=== PATIENT | female | born 1935 | race Caucasian/White ===

== ENCOUNTER 2025-02-02 15:27 | Observation (INO) | payer MEDICARE, SELFPAY ==
[2025-02-02] VITALS (24 sets, daily range): BP systolic 123–148; BP diastolic 44–97; PULSE 86–99; RESP 16–30; TEMP 36.9; O2SAT 83–100
--- NOTE | 2025-02-02 15:38 | ECG_ITS ---
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
--- NOTE | 2025-02-02 16:20 | XRR_ITS ---
PROCEDURE INFORMATION: Exam: XR Chest Exam date and time: 02/02/2025 4:52 PM Age: 89 years old Clinical indication: Shortness of breath; Additional info: SOB; Rash to back-probable shingles; Anxiety; Hyperventilation TECHNIQUE: Imaging protocol: Radiologic exam of the chest. Views: 1 view. COMPARISON: No relevant prior studies available. 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 No consolidation. Pleural spaces: Unremarkable. No pleural effusion. No pneumothorax. Heart/Mediastinum: Unremarkable. No cardiomegaly. Bones/joints: Bilateral rotator cuff arthropathy. Mild degenerative changes in the spine with lumbar scoliosis. No acute fracture. XR/XR chest 1V portable [id number] IMPRESSION: No acute findings.
[2025-02-02 17:27] LABS: Glucose Urine UA Negative (Normal); Nitrate Urine Negative (Negative); Specific Gravity, Urine 1.020 (1.005-1.030)
[2025-02-02 17:30] LABS: Hematocrit 35.8 % (36-47); Hemoglobin 11.70 g/dL (11.27-16.99); Mean Corpuscular HGB Conc 32.7 g/dL (30-55); Mean Corpuscular Hemoglobin 32.4 pg (27-33); Mean Corpuscular Volume 99.2 fl (85-98); Nucleated Red Blood Cells % 0 %; Platelet Count 340 10^3/cmm (157-399); Red Blood Count 3.61 10^6/uL (3.85-5.65); White Blood Count 9.73 10^3/uL (3.29-11.43)
[2025-02-02 17:32] LABS: Add Urine Microscopic? YES
[2025-02-02] MEDS: oxyCODONE-APAP 5-325 mg Tablet 0.5 TAB PO (17:34)
[2025-02-02 17:50] LABS: Alanine Aminotransferase 11 U/L (0-33); Albumin Level 4.1 g/dL (3.5-5.2); Alkaline Phosphatase 84 U/L (35-105); Anion Gap 18.1 (5-19); Aspartate Amino Transferase 15 U/L (0-32); Blood Urea Nitrogen 16 mg/dL (8-23); Calcium 9.5 mg/dL (8.5-10.5); Carbon Dioxide 19 mmol/L (22-29); Chloride 103 mmol/L (98-107); Globulin 2.8 g/dL (1.3-4.6); Glucose 93 mg/dL (65-115); Osmolality Calculated 283 mOsm/kg (285-295); Potassium 4.1 mmol/L (3.5-5.1); Sodium 136 mmol/L (136-145); Total Protein 6.9 g/dL (6.6-8.7)
--- NOTE | 2025-02-02 18:18 | ED_ITS ---
Documented by User: HENRI Webber 02/02/25 18:28 HPI - General Adult 2 General: Chief complaint: General Medical Stated complaint: back pain, rash on back, sob Time Seen by Provider: 02/02/25 16:55 Source: patient and family Mode of arrival: ambulatory Limitations: no limitations History of Present Illness: Patient is an 89-year-old female who presents the emergency department complaining of rash and left-sided flank pain for the last few days. States that she recently was treated for UTI due to left lower back pain, however this pain has persisted and she noticed the breakout of dermatomal rash that she states feels like something sawing through my back. She also is reporting shortness of breath, chronically is on 2 L of oxygen and noted at this time to be hyperventilating and placed on 4 L in triage. She is not vaccinated for shingles. States she has been taking Tylenol at home with no relief. No fever, nausea/vomiting, or other symptoms reported at this time. MD complaint: Rash, shortness of breath, flank pain Onset (ago): day(s) Associated symptoms: Reports dyspnea and rash; Deny chest pain, headache(s), nausea, palpitations or vomiting Related Data Allergies Allergy/AdvReac Type Severity Reaction Status Date / Time No Known Allergies Allergy Verified 02/02/25 15:43 Review of Systems 2 General: Reports: 10 or more systems reviewed and unremarkable except in HPI and below Const: Denies: fever(s), chills or fatigue Eyes: Denies: change in vision ENMT: Denies: throat pain, ear or mastoid pain or nasal discharge Card: Denies: chest pain, palpitations, swelling of feet/ankles or lightheadedness Resp: Reports: dyspnea; Denies: productive cough or wheezing GI: Denies: abdominal pain, nausea, vomiting, diarrhea or constipation : Reports: flank pain; Denies: difficulty voiding, dysuria or urinary frequency Musc: Reports: back pain; Denies: neck pain or joint pain Skin/Breast: Reports: rash, skin pain and skin tenderness Neuro: Denies: headache(s), numbness in extremities or weakness in extremities Physical Exam 2 Const: COMMON NORMALS: patient oriented x3 and alert O RIENTATION/CONSCIOUSNESS: Yes awake HENMT: COMMON NORMALS: normocephalic and atraumatic HEAD & SCALP: n ormocephalic and atraumatic Neck/C-Spine: COMMON NORMALS: full ROM, no lymphadenopathy, supple and no meningeal signs Resp: COMMON NORMALS: clear to auscultation bilaterally EFFORT & INSPECTION: Yes tachypneic AUSCULTATION: clear to auscultation bilaterally OTHER: Shallow breathing, speaking in choppy sentences, hyperventilating Cardio: COMMON NORMALS: regular rate and regular rhythm RATE: regular rate RHYTHM: regular rhythm Back/Pelvis: OTHER: Scabbed over vesicular rash that begins to left mid thoracic region and wraps around the left flank. Severe tenderness to palpation of the area Extremity: COMMON NORMALS: full ROM and capillary refill normal Neuro: COMMON NORMALS: patient oriented x3, moves all extremities, no focal motor deficits and no sensory deficits noted SENSORIUM/ORIENTATION: Yes alert MENINGEAL SIGNS: Yes no meningeal signs Skin: COMMON NORMALS: turgor normal NARRATIVE SKIN EXAM: Previously mentioned rash to the back wraps around towards the left flank and left lower abdominal region GENERAL SKIN EXAM: turgor normal Course 2 Vital Signs: Vital signs: Vital Signs Temperature 98.4 F 02/02/25 15:39 Pulse Rate 91 02/02/25 18:03 Respiratory Rate 16 02/02/25 18:03 Blood Pressure 141/83 02/02/25 18:03 Pulse Oximetry 99 02/02/25 18:03 Oxygen Delivery Me thod Nasal Cannula 02/02/25 18:03 Oxygen Flow Rate 4 02/02/25 15:39 [facility] - General Adult Medical Decision Making Patient presenting with what appears to be shingles rash, severe 10/10 pain reported. Pain began a week ago where she was treated for UTI, later the rash appeared following the pain and she states she has not gotten any relief despite erkg-ely-imooyce therapy. Chronically on 2 L of oxygen, she is put on 4 L due to her hyperventilation and dropping O2 sats, but has been 99 to 100% on 4 L. She lives at home by herself, and states to me that she does not feel comfortable treating at home, despite efforts to control her pain here in the emergency department. She was given 2.5 mg oxycodone, lidocaine patch, and 5 mg Tylenol which have not touched her pain. Spoke to Dr. Lambert, hospitalist, who will see the patient. Lab Data 02/02/25 17:20 02/02/25 17:20 Radiology Impressions Chest X-Ray 02/02/25 16:20 IMPRESSION: No acute findings. Laboratory Results WBC 9.73 10^3/uL (3.29-11.43) 02/02/25 17:20 RBC 3.61 10^6/uL (3.85-5.65) L 02/02/25 17:20 Hgb 11.70 g/dL (11.27-16.99) 02/02/25 17:20 Hct 35.8 % (36-47) L 02/02/25 17:20 MCV 99.2 fl (85-98) H 02/02/25 17:20 MCH 32.4 pg (27-33) 02/02/25 17:20 MCHC 32.7 g/dL (30-55) 02/02/25 17:20 RDW 13.3 % (12.1-15.1) 02/02/25 17:20 Plt Count 340 10^3/cmm (157-399) 02/02/25 17:20 MPV 8.6 fL (7.4-10.4) 02/02/25 17:20 Neut % (Auto) 59.8 % 02/02/25 17:20 Lymph % (Auto) 28.6 % 02/02/25 17:20 [place] % (Auto) 8.6 % 02/02/25 17:20 Eos % (Auto) 0.8 % 02/02/25 17:20 Baso % (Auto) 0.5 % 02/02/25 17:20 Neut # (Auto) 5.81 10^3/uL (1.8-7.7) 02/02/25 17:20 Lymph # (Auto) 2.8 10^3/uL (0.8-4.8) 02/02/25 17:20 [place] # (Auto) 0.8 10^3/uL (0.2-0.9) 02/02/25 17:20 Eos # (Auto) 0.1 10^3/uL (0.0-0.8) 02/02/25 17:20 Baso # (Auto) 0.1 10^3/uL (0.0-0.1) 02/02/25 17:20 Nucleated RBC % (auto) 0 % 02/02/25 17:20 Nucleated RBCs # 0.0 /100WBC 02/02/25 17:20 Sodium 136 mmol/L (136-145) 02/02/25 17:20 Potassium 4.1 mmol/L (3.5-5.1) 02/02/25 17:20 Chloride 103 mmol/L (98-107) 02/02/25 17:20 Carbon Dioxide 19 mmol/L (22-29) L 02/02/25 17:20 Anion Gap 18.1 (5-19) 02/02/25 17:20 BUN 16 mg/dL (8-23) 02/02/25 17:20 Creatinine 1.4 mg/dL (0.5-0.9) H 02/02/25 17:20 GFR Calculation Not Reportable 02/02/25 17:20 Glucose 93 mg/dL (65-115) 02/02/25 17:20 Calculated Osmolality 283 mOsm/kg (285-295) L 02/02/25 17:20 Calcium 9.5 mg/dL (8.5-10.5) 02/02/25 17:20 Total Bilirubin 0.2 mg/dL (0.15-1.2) 02/02/25 17:20 AST 15 U/L (0-32) 02/02/25 17:20 ALT 11 U/L (0-33) 02/02/25 17:20 Alkaline Phosphatase 84 U/L (35-105) 02/02/25 17:20 Total Protein 6.9 g/dL (6.6-8.7) 02/02/25 17:20 Albumin 4.1 g/dL (3.5-5.2) 02/02/25 17:20 Globulin 2.8 g/dL (1.3-4.6) 02/02/25 17:20 Urine Color Yellow (Yellow) 02/02/25 17:11 Urine Appearance Clear (CLEAR) 02/02/25 17:11 Urine pH 5.0 (5-7) 02/02/25 17:11 Ur Specific [place] 1.020 (1.005-1.030) 02/02/25 17:11 Urine Protein Negative (Negative) 02/02/25 17:11 Urine Glucose (UA) Negative (Normal) 02/02/25 17:11 Urine Ketones Trace (Negative) 02/02/25 17:11 Urine Blood Negative (Negative) 02/02/25 17:11 Urine Nitrate Negative (Negative) 02/02/25 17:11 Urine Bilirubin Negative (Negative) 02/02/25 17:11 Urine Urobilinogen 1.0 mg/dL (Negative) 02/02/25 17:11 Ur Leukocyte Esterase 2+ (Negative) A 02/02/25 17:11 Urine RBC 0-2 /hpf (0-2) 02/02/25 17:11 Urine WBC 11-20 /hpf (0-5) H 02/02/25 17:11 Ur Squamous Epith Cells 0-5 /hpf (0-5) 02/02/25 17:11 Amorphous Sediment Not Reportable 02/02/25 17:11 Urine Bacteria None seen /hpf (NONE) 02/02/25 17:11 Hyaline Casts 6.20 /lpf 02/02/25 17:11 XR interpretation done by ED provider, pending radiology final review ED provider radiology interpretation(s): Chest x-ray unremarkable for any focal consolidation. Discharge Plan Discharge Patient Disposition: Placed in Observation Admit Provider: Satish Lambert Clinical Impression: Intractable pain Shingles Qualifiers: Herpes zoster complications: without complications Qualified Code(s): B02.9 - Zoster without complications Coding Level of Care Code ED Plate Grainer for Chg Fwd Documented by User: Tesfaye Amaya DO 02/02/25 18:44 HPI - General Adult 2 General: Chief complaint: General Medical Stated complaint: back pain, rash on back, sob Time Seen by Provider: 02/02/25 16:55 Related Data Allergies Allergy/AdvReac Type Severity Reaction Status Date / Time No Known Allergies Allergy Verified 02/02/25 15:43 Course 2 Vital Signs: Vital signs: Vital Signs Temperature 98.4 F 02/02/25 15:39 Pulse Rate 91 02/02/25 18:03 Respiratory Rate 16 02/02/25 18:03 Blood Pressure 141/83 02/02/25 18:03 Pulse Oximetry 99 02/02/25 18:03 Oxygen Delivery Me thod Nasal Cannula 02/02/25 18:03 Oxygen Flow Rate 4 02/02/25 15:39 MDM - General Adult Medical Decision Making Patient presenting with what appears to be shingles rash, severe 10/10 pain reported. Pain began a week ago where she was treated for UTI, later the rash appeared following the pain and she states she has not gotten any relief despite lqqk-syv-rqogcnu therapy. Chronically on 2 L of oxygen, she is put on 4 L due to her hyperventilation and dropping O2 sats, but has been 99 to 100% on 4 L. She lives at home by herself, and states to me that she does not feel comfortable treating at home, despite efforts to control her pain here in the emergency department. She was given 2.5 mg oxycodone, lidocaine patch, and 5 mg Tylenol which have not touched her pain. Spoke to Dr. Lambert, hospitalist, who will see the patient. The patient was seen by Mr. Fausto PA-C. I agree with his history, evaluation, and management. The hospitalist has seen the patient. Lab Data 02/02/25 17:20 02/02/25 17:20 Radiology Impressions Chest X-Ray 02/02/25 16:20 IMPRESSION: No acute findings. Laboratory Results WBC 9.73 10^3/uL (3.29-11.43) 02/02/25 17:20 RBC 3.61 10^6/uL (3.85-5.65) L 02/02/25 17:20 Hgb 11.70 g/dL (11.27-16.99) 02/02/25 17:20 Hct 35.8 % (36-47) L 02/02/25 17:20 MCV 99.2 fl (85-98) H 02/02/25 17:20 MCH 32.4 pg (27-33) 02/02/25 17:20 MCHC 32.7 g/dL (30-55) 02/02/25 17:20 RDW 13.3 % (12.1-15.1) 02/02/25 17:20 Plt Count 340 10^3/cmm (157-399) 02/02/25 17:20 MPV 8.6 fL (7.4-10.4) 02/02/25 17:20 Neut % (Auto) 59.8 % 02/02/25 17:20 Lymph % (Auto) 28.6 % 02/02/25 17:20 [place] % (Auto) 8.6 % 02/02/25 17:20 Eos % (Auto) 0.8 % 02/02/25 17:20 Baso % (Auto) 0.5 % 02/02/25 17:20 Neut # (Auto) 5.81 10^3/uL (1.8-7.7) 02/02/25 17:20 Lymph # (Auto) 2.8 10^3/uL (0.8-4.8) 02/02/25 17:20 [place] # (Auto) 0.8 10^3/uL (0.2-0.9) 02/02/25 17:20 Eos # (Auto) 0.1 10^3/uL (0.0-0.8) 02/02/25 17:20 Baso # (Auto) 0.1 10^3/uL (0.0-0.1) 02/02/25 17:20 Nucleated RBC % (auto) 0 % 02/02/25 17:20 Nucleated RBCs # 0.0 /100WBC 02/02/25 17:20 Sodium 136 mmol/L (136-145) 02/02/25 17:20 Potassium 4.1 mmol/L (3.5-5.1) 02/02/25 17:20 Chloride 103 mmol/L (98-107) 02/02/25 17:20 Carbon Dioxide 19 mmol/L (22-29) L 02/02/25 17:20 Anion Gap 18.1 (5-19) 02/02/25 17:20 BUN 16 mg/dL (8-23) 02/02/25 17:20 Creatinine 1.4 mg/dL (0.5-0.9) H 02/02/25 17:20 GFR Calculation Not Reportable 02/02/25 17:20 Glucose 93 mg/dL (65-115) 02/02/25 17:20 Calculated Osmolality 283 mOsm/kg (285-295) L 02/02/25 17:20 Calcium 9.5 mg/dL (8.5-10.5) 02/02/25 17:20 Total Bilirubin 0.2 mg/dL (0.15-1.2) 02/02/25 17:20 AST 15 U/L (0-32) 02/02/25 17:20 ALT 11 U/L (0-33) 02/02/25 17:20 Alkaline Phosphatase 84 U/L (35-105) 02/02/25 17:20 Total Protein 6.9 g/dL (6.6-8.7) 02/02/25 17:20 Albumin 4.1 g/dL (3.5-5.2) 02/02/25 17:20 Globulin 2.8 g/dL (1.3-4.6) 02/02/25 17:20 Urine Color Yellow (Yellow) 02/02/25 17:11 Urine Appearance Clear (CLEAR) 02/02/25 17:11 Urine pH 5.0 (5-7) 02/02/25 17:11 Ur Specific [place] 1.020 (1.005-1.030) 02/02/25 17:11 Urine Protein Negative (Negative) 02/02/25 17:11 Urine Glucose (UA) Negative (Normal) 02/02/25 17:11 Urine Ketones Trace (Negative) 02/02/25 17:11 Urine Blood Negative (Negative) 02/02/25 17:11 Urine Nitrate Negative (Negative) 02/02/25 17:11 Urine Bilirubin Negative (Negative) 02/02/25 17:11 Urine Urobilinogen 1.0 mg/dL (Negative) 02/02/25 17:11 Ur Leukocyte Esterase 2+ (Negative) A 02/02/25 17:11 Urine RBC 0-2 /hpf (0-2) 02/02/25 17:11 Urine WBC 11-20 /hpf (0-5) H 02/02/25 17:11 Ur Squamous Epith Cells 0-5 /hpf (0-5) 02/02/25 17:11 Amorphous Sediment Not Reportable 02/02/25 17:11 Urine Bacteria None seen /hpf (NONE) 02/02/25 17:11 Hyaline Casts 6.20 /lpf 02/02/25 17:11 Discharge Plan Discharge Patient Disposition: Placed in Observation Admit Provider: Satish Lambert Clinical Impression: Intractable pain Shingles Qualifiers: Herpes zoster complications: without complications Qualified Code(s): B02.9 - Zoster without complications Coding Level of Care Code ED Plate Grainer for Mohan Dejesus
--- NOTE | 2025-02-02 18:26 | PM.HP ---
Providers/Chief Complaint Chief Complaint: back pain, rash on back, sob History of Present Illness As per the previous notes and the patient/family: Anjelica Rooney is a 89 year old female with past medical history of lung fibrosis on regular nebulizations with albuterol 3-4 times per day, hypertension on antihypertensive medications, who presents the emergency department complaining of rash and left-sided flank pain for the last few days. She was having UTI and was treated for that with Keflex which she took for 7 days. later the patient developed a rash on her left side of the flank near the breast fold in a dermatomal fashion. It was associated with extreme pain with burning and tingling sensation that was causing discomfort to the patient. She took Tylenol and other measures but it did not relieve her symptoms. The rash started with vesicular eruptions currently its crusted. She did not take any antiviral medications for the treatment. She is not known to be vaccinated. There was no associated rash symptoms or any part of the body no photophobia no nausea vomiting diarrhea abdominal pain no leg swelling chest pain or any other symptoms. The patient is at baseline home oxygen dependent due to lung fibrosis 3 to 4 L and always in the range of mild tachypnea around 18-24 as per the daughter at baseline. However she was on some medication for lung fibrosis but currently she does not remember and is not taking it at the moment. The patient medications were reviewed that she brought. Review of Systems General: Reports: 10 or more systems reviewed and unremarkable except in HPI and below Medications/Allergies Allergies Allergy/AdvReac Type Severity Reaction Status Date / Time No Known Allergies Allergy Verified 02/02/25 15:43 Vitals/I&O/Wt Last Vital Signs Temp 98.4 F 02/02/25 15:39 Pulse 91 02/02/25 18:03 Resp 16 02/02/25 18:03 BP 141/83 02/02/25 18:03 Pulse Ox 99 02/02/25 18:03 O2 Del Method Nasal Cannula 02/02/25 18:03 O2 Flow Rate 4 02/02/25 15:39 Weight last 48 hrs Weight 66.678 kg Physical Exam Narrative: General: Alert oriented x3, patient seen lying with discomfort due to pain on the rash on her left side of the flank in a dermatomal fashion. HEENT: Normocephalic, atraumatic, EOMI, breathing 4 L through nasal cannula at her baseline with mild tachypnea Cardio: Regular rate rhythm, normal S1-S2, no murmurs rubs gallops, JVD normal Respiratory: Mild inspiratory crepitations were heard but were not prominent. No wheezes or any stridor GI: Abdomen soft, nontender, nondistended, normoactive bowel sounds present all 4 quadrants, Neuro: Cranial nerves II to XII intact, strength 5/5, sensation 5/5, no gross neurological deficit Behavior: Appropriate and cooperative Extremities: Pulses 2+, no edema, no cyanosis Skin: Visible rash on the left flank near the breast fold in a dermatomal fashion, crusted no vesicular lesions found, partially healing, redness and erythema around Data 02/02/25 17:20 02/02/25 17:20 A&P Assessment and plan 1. Intractable pain: 2. Shingles: 3. Post herpetic neuralgia: 4. Lung fibrosis: 5. Hypertension: Plan: 89-year-old lady with past medical history of lung fibrosis, hypertension and recent UTI was treated 7 days ago with Keflex presented with skin rash on the left flank near the breast fold suggestive of shingles with crusted lesions since a week now presented with postherpetic neuralgia - Start the patient on gabapentin 300 mg twice daily for postherpetic neuralgia - Continue valacyclovir 1 g 3 times daily for shingles for at least 7 days - Lidocaine topicals for the burning sensation -Isolation protocol with contact precautions and covering the rash adequately to avoid exposure to the ear, if unable to cover then airborne isolation to apply. - Continue home medications amlodipine 2.5 mg daily and lisinopril 5 mg daily (at home patient taking combination of lisinopril and hydrochlorothiazide) - Albuterol and ipratropium Q4 hourly scheduled -Hydrocortisone as needed for pain - PPI daily - Home medication buspirone 50 mg 3 times daily to continue. VTE prophylaxis: Heparin twice daily PDMP PDMP Reviewed: Not Reviewed Attestations Medical Necessity Statement*: Anjelica Rooney's hospital stay will require greater than 2 midnights for her management of shingles, post herpetic neuralgia Time Spent in Patient Care: 16 - 35 minutes (>than 50% of time spent in counselling and/or direct pt care on unit). Other Attestations: Patient condition has been discussed at length with the patient/family, I have independently reviewed the chart labs imaging and diagnostics and EKG. I have discussed the goals of care and code status with the patient/family/NOK/legal warehouse representative, and documented accordingly. The patient/family has been informed about the current condition and further plan of care. Agreed with the plan of care and understood without any language barrier. This documentation was created by [employer] rehabilitation program manager software. Every effort was made to ensure accuracy of rehabilitation program manager. Any obvious errors or omissions should be clarified with the author of the document. Coding Level of Care Code 55333 Diagnoses Intractable pain R52 Shingles B02.9 Post herpetic neuralgia B02.29 Lung fibrosis J84.10 Hypertension I10
[2025-02-02] MEDS: heparin 5,000 unit/mL INJ 1 mL 5000 UNIT SUBCUT (20:32)
[2025-02-03] VITALS (19 sets, daily range): BP systolic 110–156; BP diastolic 53–90; PULSE 76–106; RESP 16–28; TEMP 36.3–36.4; O2SAT 94–100
[2025-02-03] MEDS: lidocaine 2% Urojet 20 mL (04:47)
[2025-02-03 06:05] LABS: Hematocrit 35.2 % (36-47); Hemoglobin 11.40 g/dL (11.27-16.99); Mean Corpuscular HGB Conc 32.4 g/dL (30-55); Mean Corpuscular Hemoglobin 32.2 pg (27-33); Mean Corpuscular Volume 99.4 fl (85-98); Nucleated Red Blood Cells % 0 %; Platelet Count 294 10^3/cmm (157-399); Red Blood Count 3.54 10^6/uL (3.85-5.65); White Blood Count 8.33 10^3/uL (3.29-11.43)
[2025-02-03 06:15] LABS: Alanine Aminotransferase 10 U/L (0-33); Albumin Level 3.8 g/dL (3.5-5.2); Alkaline Phosphatase 82 U/L (35-105); Anion Gap 16.4 (5-19); Aspartate Amino Transferase 17 U/L (0-32); Blood Urea Nitrogen 15 mg/dL (8-23); Calcium 9.5 mg/dL (8.5-10.5); Carbon Dioxide 22 mmol/L (22-29); Chloride 103 mmol/L (98-107); Creatinine Clr Calc Pharmacy 34.8267; Globulin 2.8 g/dL (1.3-4.6); Glucose 109 mg/dL (65-115); Osmolality Calculated 285 mOsm/kg (285-295); Potassium 4.4 mmol/L (3.5-5.1); Sodium 137 mmol/L (136-145); Total Protein 6.6 g/dL (6.6-8.7)
[2025-02-03] MEDS: heparin 5,000 unit/mL INJ 1 mL 5000 UNIT SUBCUT (06:24)
[2025-02-03] MEDS: pantoprazole 40 mg SDV IVP (08:15)
--- NOTE | 2025-02-03 13:03 | PM.DCS ---
Discharge Providers Date of Admission: 02/02/25 18:23 Date of Discharge: February 03, 2025 Attending Provider at Admission: Satish aLmbert MD Attending Provider at Discharge: Satish Lambert MD Diagnoses at Discharge Discharge Diagnosis 1. Intractable pain: 2. Shingles: 3. Post herpetic neuralgia: 4. Lung fibrosis: 5. Hypertension: Reason for Visit Reason for Visit: back pain, rash on back, sob Brief History: As per the previous notes and the patient/family: Anjelica Rooney is a 89 year old female with past medical history of lung fibrosis on regular nebulizations with albuterol 3-4 times per day, hypertension on antihypertensive medications, who presents the emergency department complaining of rash and left-sided flank pain for the last few days. She was having UTI and was treated for that with Keflex which she took for 7 days. later the patient developed a rash on her left side of the flank near the breast fold in a dermatomal fashion. It was associated with extreme pain with burning and tingling sensation that was causing discomfort to the patient. She took Tylenol and other measures but it did not relieve her symptoms. The rash started with vesicular eruptions currently its crusted. She did not take any antiviral medications for the treatment. She is not known to be vaccinated. There was no associated rash symptoms or any part of the body no photophobia no nausea vomiting diarrhea abdominal pain no leg swelling chest pain or any other symptoms.The patient is at baseline home oxygen dependent due to lung fibrosis 3 to 4 L and always in the range of mild tachypnea around 18-24 as per the daughter at baseline. However she was on some medication for lung fibrosis but currently she does not remember and is not taking it at the moment. Hospital Course Hospital Course The patient was started on gabapentin 200 mg twice daily, valacyclovir for shingles. She was kept on her nebulization for lung fibrosis. And lidocaine topical to apply on the rash site. The patient was stable and seen in the morning sleeping and lying comfortably. The pain has improved significantly unremarkably. And the patient discharged home without any complications with her baseline status. Patient condition has been discussed at length with the patient/family, I have independently reviewed the chart labs imaging and diagnostics and EKG. I have discussed the goals of care and code status with the patient/family/NOK/legal leasing representative, and documented accordingly. The patient/family has been informed about the current condition and further plan of care. Agreed with the plan of care and understood without any language barrier. This documentation was created by [employer] supply chain development manager software. Every effort was made to ensure accuracy of supply chain development manager. Any obvious errors or omissions should be clarified with the author of the document. Physical Exam Narrative: General: Alert oriented x3, patient seen lying with discomfort due to pain on the rash on her left side of the flank in a dermatomal fashion. HEENT: Normocephalic, atraumatic, EOMI, breathing 2 L through nasal cannula at her baseline with mild tachypnea Cardio: Regular rate rhythm, normal S1-S2, no murmurs rubs gallops, JVD normal Respiratory: Mild inspiratory crepitations were heard at the bases up to mid zone that were fine in nature. No wheezes or any stridor GI: Abdomen soft, nontender, nondistended, normoactive bowel sounds present all 4 quadrants, Neuro: Cranial nerves II to XII intact, strength 5/5, sensation 5/5, no gross neurological deficit Behavior: Appropriate and cooperative Extremities: Pulses 2+, no edema, no cyanosis Skin: Visible rash on the left flank near the breast fold in a dermatomal fashion, crusted no vesicular lesions found, partially healing, redness and erythema around Discharge Data Studies Completed and Pending Completed Studies During Hospitalization Category Date Time Status XR chest 1V portable [id number] Stat Exams 02/02/25 16:20 Completed Radiology Impressions Chest X-Ray 02/02/25 16:20 IMPRESSION: No acute findings. Laboratory Results WBC 8.33 10^3/uL (3.29-11.43) 02/03/25 05:52 RBC 3.54 10^6/uL (3.85-5.65) L 02/03/25 05:52 Hgb 11.40 g/dL (11.27-16.99) 02/03/25 05:52 Hct 35.2 % (36-47) L 02/03/25 05:52 MCV 99.4 fl (85-98) H 02/03/25 05:52 MCH 32.2 pg (27-33) 02/03/25 05:52 MCHC 32.4 g/dL (30-55) 02/03/25 05:52 RDW 13.2 % (12.1-15.1) 02/03/25 05:52 Plt Count 294 10^3/cmm (157-399) 02/03/25 05:52 MPV 8.6 fL (7.4-10.4) 02/03/25 05:52 Neut % (Auto) 58.9 % 02/03/25 05:52 Lymph % (Auto) 28.9 % 02/03/25 05:52 [place] % (Auto) 8.6 % 02/03/25 05:52 Eos % (Auto) 1.1 % 02/03/25 05:52 Baso % (Auto) 0.6 % 02/03/25 05:52 Neut # (Auto) 4.90 10^3/uL (1.8-7.7) 02/03/25 05:52 Lymph # (Auto) 2.4 10^3/uL (0.8-4.8) 02/03/25 05:52 [place] # (Auto) 0.7 10^3/uL (0.2-0.9) 02/03/25 05:52 Eos # (Auto) 0.1 10^3/uL (0.0-0.8) 02/03/25 05:52 Baso # (Auto) 0.1 10^3/uL (0.0-0.1) 02/03/25 05:52 Nucleated RBC % (auto) 0 % 02/03/25 05:52 Nucleated RBCs # 0.0 /100WBC 02/03/25 05:52 Sodium 137 mmol/L (136-145) 02/03/25 05:52 Potassium 4.4 mmol/L (3.5-5.1) 02/03/25 05:52 Chloride 103 mmol/L (98-107) 02/03/25 05:52 Carbon Dioxide 22 mmol/L (22-29) 02/03/25 05:52 Anion Gap 16.4 (5-19) 02/03/25 05:52 BUN 15 mg/dL (8-23) 02/03/25 05:52 Creatinine 1.0 mg/dL (0.5-0.9) H 02/03/25 05:52 GFR Calculation Not Reportable 02/03/25 05:52 Glucose 109 mg/dL (65-115) 02/03/25 05:52 Calculated Osmolality 285 mOsm/kg (285-295) 02/03/25 05:52 Calcium 9.5 mg/dL (8.5-10.5) 02/03/25 05:52 Total Bilirubin 0.4 mg/dL (0.15-1.2) 02/03/25 05:52 AST 17 U/L (0-32) 02/03/25 05:52 ALT 10 U/L (0-33) 02/03/25 05:52 Alkaline Phosphatase 82 U/L (35-105) 02/03/25 05:52 Total Protein 6.6 g/dL (6.6-8.7) 02/03/25 05:52 Albumin 3.8 g/dL (3.5-5.2) 02/03/25 05:52 Globulin 2.8 g/dL (1.3-4.6) 02/03/25 05:52 Urine Color Yellow (Yellow) 02/02/25 17:11 Urine Appearance Clear (CLEAR) 02/02/25 17:11 Urine pH 5.0 (5-7) 02/02/25 17:11 Ur Specific [place] 1.020 (1.005-1.030) 02/02/25 17:11 Urine Protein Negative (Negative) 02/02/25 17:11 Urine Glucose (UA) Negative (Normal) 02/02/25 17:11 Urine Ketones Trace (Negative) 02/02/25 17:11 Urine Blood Negative (Negative) 02/02/25 17:11 Urine Nitrate Negative (Negative) 02/02/25 17:11 Urine Bilirubin Negative (Negative) 02/02/25 17:11 Urine Urobilinogen 1.0 mg/dL (Negative) 02/02/25 17:11 Ur Leukocyte Esterase 2+ (Negative) A 02/02/25 17:11 Urine RBC 0-2 /hpf (0-2) 02/02/25 17:11 Urine WBC 11-20 /hpf (0-5) H 02/02/25 17:11 Ur Squamous Epith Cells 0-5 /hpf (0-5) 02/02/25 17:11 Amorphous Sediment Not Reportable 02/02/25 17:11 Urine Bacteria None seen /hpf (NONE) 02/02/25 17:11 Hyaline Casts 6.20 /lpf 02/02/25 17:11 Vitals Last Vital Signs Temp 97.6 F 02/03/25 11:48 Pulse 93 02/03/25 11:48 Resp 20 H 02/03/25 11:48 BP 125/58 02/03/25 11:48 Pulse Ox 97 02/03/25 11:48 O2 Del Method Nasal Cannula 02/03/25 11:48 O2 Flow Rate 2 02/03/25 11:28 Discharge Plan Discharge Patient Disposition: Home Condition: Stable Prescriptions: New lidocaine HCl [Glydo] 2 % Jelly In Applicator 1 applic topical ONCE 10 Days Qty: 100 0RF valacyclovir 1 gram Tablet 1,000 mg PO BID 6 Days Qty: 12 0RF gabapentin 100 mg Capsule 200 mg PO BID 10 Days Qty: 40 0RF Continued atorvastatin 20 mg tablet 20 mg PO DAILY albuterol sulfate 2.5 mg /3 mL (0.083 %) solution for nebulization 2.5 mg inhalation Q6H amlodipine 2.5 mg tablet 2.5 mg PO DAILY potassium chloride 20 mEq tablet,ER particles/crystals 20 meq PO Q48H pantoprazole 40 mg tablet,delayed release (DR/EC) 40 mg PO DAILY buspirone 15 mg tablet 15 mg PO TID losartan-hydrochlorothiazide 100-12.5 mg tablet 1 tab PO DAILY acetaminophen [Tylenol Extra Strength] 500 mg Tablet 1,000 mg PO Q6H PRN (Reason: Fever Or Pain) ascorbic acid (vitamin C) [Vitamin C] 500 mg Tablet 500 mg PO DAILY ferrous sulfate [Iron (ferrous sulfate)] 325 mg (65 mg iron) Tablet 325 mg PO DAILY Discharge Order = DC NOW: Discharge Order (Routine); Ordered 02/03/25 Ordered By: Satish Lambert Discharge Diet: Advance as tolerated and Usual diet Discharge Activity: Resume usual activity, Increase activity as tolerated and Limit activity as instructed Patient Instructions: Opioid Safety, Patient Portal & Deondre Instructions Discharge Attestations Time Spent in Discharge Care*: less than 30 min Specific Discharge Activities: educating patient, educating and/or supporting family/caregiver, discussing with pcp/other providers, discussing with egg caser/social workers/dc planners, documenting/other paperwork and evaluating patient/reviewing data Status at Discharge: Cognitive status at discharge: cognitively intact, Behavioral status at discharge: cooperative, Functional status at discharge: other assisted ambulation, Overall status at discharge: patient is back to baseline Quality Metrics Clinical Quality Measures [ No reported AMI, CVA or VTE this stay] Coding Level of Care Code Acute Code for Chg Fwd Diagnoses Intractable pain R52 Shingles B02.9 Herpes zoster complications: without complications Post herpetic neuralgia B02.29 Lung fibrosis J84.10 Hypertension I10
--- NOTE | 2025-02-03 13:41 | PC.NURSE ---
pt states that her daughter that is her tranport to home will not be able to make it to facility before 330 pm today for discharge. pt is resting comfortably in bed and continues on oxygen at baseline.
--- OUTSIDE RECORDS SUMMARY | 2025-02-05 07:45 | XMS_ITS | Patient Health Record ---
Author Organization [facility] Address [address] [place] [address] Support Name Relationship Address Phone Rachel Rooney Emergency Contact [address] [place], [place] [id number] MARLIMELISSA Guarantor Unknown [phone] Allergies No Known Allergies Reason For Referral No Information Medications Medication SIG (Take, Route, Frequency, Duration) Notes Start Date End Date Status Vitamin E 1000 intl units 1 cap(s) orally once a day; Duration: 30 day(s) *Pick strength-form from Medispan for eRX* Active Vitamin C 500 mg 1 tab(s) orally once a day; Duration: 30 day(s) Active Vitamin B6 25 mg 1 tab(s) orally once a day; Duration: 30 day(s) *Pick strength-form from Medispan for eRX* Active Metoprolol 25 mg 1 tab(s) orally once a day; Duration: 30 day(s) *Reorder from Medispan for eRx and Interaction Alerts* Active atorvastatin 20 mg 1 tab(s) orally once a day; Duration: 30 day(s) *Reorder from Medispan for eRx and Interaction Alerts* Active buspirone 10 mg 1 tab(s) orally 2 times a day; Duration: 30 day(s) *Reorder from Medispan for eRx and Interaction Alerts* Active Aspirin 225 mg once a day *Pick strength-f orm from Medispan for eRX* Active Omeprazole 40 mg 1 cap(s) orally once a day; Duration: 30 day(s) *Pick strength-form from Medispan for eRX* Active Problems Problem Type SNOMED Code ICD Code Onset Dates Problem Status W/U Status Risk Notes Problem Lesion of bladder (046730844) Lesion of bladder (N32.9) Active confirmed Problem Urinary incontinence, urge (N39.41) Active confirmed Problem 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) Active confirmed Plan Of Treatment Pending Test Test Name Order Date CMP 09/17/2020 CBC 09/17/2020 EKG 09/17/2020 PT and PTT 09/17/2020 URINE CULTURE SENSITIVITY 08/24/2020 Medical (General) History Medical History History ICD Code H/O KIDNEY STONE 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
--- OUTSIDE RECORDS SUMMARY | 2025-02-05 07:45 | XMS_ITS | Clinical Summary ---
Author Organization [facility] Address [address] [place]: Epic Prelude ADT ATILIO BOB [address] Care Team Providers Care Lead Coater Name Role Phone Liana Cosme Jarvis OCHOA Primary Care Provider Allergies No known active allergies Medications atorvastatin (LIPITOR) 20 mg tablet Take 20 mg by mouth daily. Active losartan-hydroCH LOROthiazide (HYZAAR) 100-12.5 mg tablet Take 1 Tablet by mouth daily. Active acetaminophen (TYLENOL) 500 mg tablet Take 500 mg by mouth 2 times daily as needed. Active aspirin (LUL) 325 mg tablet Take 325 mg by mouth daily. Active ASCORBIC ACID, VITAMIN C, ORAL Take by mouth. Active IRON, FERROUS SULFATE, ORAL Take by mouth. A ctive POTASSIUM CHLORIDE ORAL Take by mouth. A ctive pyridoxine HCl, vitamin B6, (PYRIDOXINE, VITAMIN B6, ORAL) Take by mouth. Activ e albuterol (PROVENTIL,JEANNINE PARI) 2.5 mg/0.5 mL Solution for Nebulization Take 2.5 mg by inhalation one time only. Active vit A/vit C/vit E/zinc/copper (EYE MULTIVITAMIN ORAL) Take by mouth. Activ e oxygen home deliveryIndicati ons:Chronic obstructive pulmonary disease, unspecified COPD type (CMS/HCC) Home Oxygen Concentrator yes at 4 L/M Rest, 4 L/M Activity, 4 L/M Sleep, Delivery Device: Nasal Cannula Portability: yes, 4 L/M Rest, 4 L/M Activity, May provide device best for patient needs(E system,home fill, conserving device) Length of Need: 99 months 1 Each 4 Active metoprolol succinate (TOPROL XL) 25 mg Extended Release 24 hour tablet take 1 tablet by mouth at bedtime 90 Tablet 4 Active busPIRone (BUSPAR) 15 mg Tablet Take 1 Tablet (15 mg) by mouth 3 times daily. 270 Tablet 3 4 Active pantoprazole (PROTONIX) 40 mg Tablet, Delayed Release (E.C.) Take 1 Tablet (40 mg) by mouth daily. 100 Tablet 3 4 Active albuterol (PROVENTIL,JEANNINE PARI) 2.5 mg /3 mL (0.083 %) Solution for Nebulization USE 1 VIAL VIA NEBULIZER FOUR TIMES DAILY NEEDED 180 mL 3 4 Active amLODIPine (NORVASC) 2.5 mg tabletIndication s:Essential hypertension TAKE 1 TABLET (2.5 MG) BY MOUTH DAILY. 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 Chronic respiratory failure with hypoxia and hyp ercapnia 12/11/2023 Essential hypertension 12/11/2023 Mixed hyperlipidemia 12/11/2023 Generalized anxiety disorder 12/11/2023 Chronic GERD 12/11/2023 Left-sided chest wall pain 05/15/2009 Acute renal failure 05/15/2009 Encounters Date Type Department Care Team Description 01/08/2025 External Device Data [facility] ABSTRACTION Provider, Abstract 01/08/2025 External Device Data [facility] ABSTRACTION Provider, Abstract 11/26/2024 External Device Data [facility] ABSTRACTION Provider, Abstract 11/19/2024 External Device Data [facility] ABSTRACTION Provider, Abstract 11/13/2024 External Device Data [facility] ABSTRACTION Provider, Abstract 11/12/2024 External Device Data [facility] ABSTRACTION Provider, Abstract 11/12/2024 Patient Outreach [facility] [address] [place] [phone] Emy Vanessa Needs Appointment (Called patient to schedule appointment. Last appointment was on 03/12/2024. 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 Gender Identity Not on file Sexual Orientation Not on file Last Filed Vital Signs Vital Sign Reading Time Taken Comments Blood Pressure 136/78 03/12/2024 10:25 AM CDT Pulse 103 03/12/2024 10:25 AM CDT Temperature 36.3 C (97.4 F) 03/12/2024 10:25 AM CDT Respiratory Rate 18 03/12/2024 10:2 5 AM CDT Oxygen Saturation 98% 03/12/2024 10: 25 AM CDT Inhaled Oxygen Concentration - - Weight 63.4 kg (139 lb 12.8 oz) 024 10:25 AM CDT Height 152.4 cm (5') 03/12/2024 10:25 AM CDT Body Mass Index 27.3 03/12/2024 10:25 AM CDT Plan of Treatment Health Maintenance Due Date Last Done Comments DTAP/TDAP/TD VACCINES (1 - Tdap) 09[birth year]02/1954 PNEUMOCOCCAL VACCINE 50+ YEARS (1 of 2 - PCV) 09/01/18 56 ZOSTER VACCINE (1 of 2) 1986 OSTEOPOROSIS SCREENING 2001 RSV VACCINE (60+ or ) (1 - 1-dose 75+ series) 09/02/2011 [place] ([place]) Prev entative Visit/Annual Wellness Visit 06/26/2024 03/12/2024 INFLUENZA VACCINE (#1) 2025 03/12/2024 Insurance [facility] [id number] [address] [phone] Care Teams Lead Coater Relationship Specialty Start Date End Date Liana Cosme DO [address] [place] [phone] PCP - General Family Practice 12/08/23
--- OUTSIDE RECORDS SUMMARY | 2025-02-05 09:58 | XMS_ITS | Clinical Summary ---
Author Organization [facility] Address [address] 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
== END 2025-02-03 15:29 | disposition home or self-care (01) ==
LOC: ER 18:24 → ER IP 18:47 → MEDSURG 02-03 11:02
PROVIDERS: Emergency Medicine; Admitting Provider Student in an Organized Health Care Education/Training Program; Emergency Provider Physician Assistant; Visit Provider Student in an Organized Health Care Education/Training Program
DX: B02.9 Zoster without complications (principal); J84.10 Pulmonary fibrosis, unspecified; B02.29 Other postherpetic nervous system involvement; K21.9 Gastro-esophageal reflux disease without esophagitis; I10 Essential (primary) hypertension; Z99.81 Dependence on supplemental oxygen
CPT/HCPCS: 36415; 71045; 80053; 81001; 85025; 93005; 94640; 96372; 96374; 99285; G0378; J1644; J2470; J9999